=== PATIENT | female | born 1965 | race Caucasian/White ===

== ENCOUNTER 2017-04-17 11:17 | Emergency (ER) | payer OTHER ==
[~2017-04-17] VITALS: Ht 157.5 cm; Wt 95.3 kg
[2017-04-17] MEDS ORDERED: HYDROCODONE-AP1 EAC6 PO (11:58)
[2017-04-17] MEDS ORDERED: IBUPROFEN 800800 M1 PO (11:58)
[2017-04-17 12:05] VITALS: BP 124/69
== END 2017-04-17 12:07 | disposition home or self-care (01) ==
LOC: M.ERS 11:17
DX: S86.012A Strain of left Achilles tendon, initial encounter (principal); Z90.710 Acquired absence of both cervix and uterus; W10.8XXA Fall (on) (from) other stairs and steps, initial encounter; Y93.89 Activity, other specified; Y92.89 Other specified places as the place of occurrence of the external cause; Y99.8 Other external cause status